=== PATIENT | male | born 1945 | race Caucasian/White ===

== ENCOUNTER 2017-12-21 23:10 | Observation (INO) | END 2017-12-23 18:35 | disposition home or self-care (01) ==

== ENCOUNTER 2022-01-26 10:35 | Emergency (ER) | payer MEDICARE, OTHER ==
[~2022-01-26] VITALS: Ht 177.8 cm; Wt 113.4 kg
[~2022-01-26 10:35] MED LIST: AMLO5 PO; ASPI81CH PO; ATOR80 PO; CLOP75 PO; EZET10-20 PO; LOSARTAN-HCTZ1 EAC1 PO; METF500 PO; Metformin HCl1000 MG PO
[2022-01-26] MEDS ORDERED: CEPH500 PO ×2 (14:56→15:01)
[2022-01-26] MEDS ORDERED: BACITO TOP ×2 (14:56→15:01)
== END 2022-01-26 15:00 | disposition home or self-care (01) ==
LOC: ER 10:35
DX: S01.311A Laceration without foreign body of right ear, initial encounter (principal); S09.90XA Unspecified injury of head, initial encounter; I10 Essential (primary) hypertension; I25.10 Atherosclerotic heart disease of native coronary artery without angina pectoris; E11.9 Type 2 diabetes mellitus without complications; E78.5 Hyperlipidemia, unspecified; Z95.5 Presence of coronary angioplasty implant and graft; Z79.82 Long term (current) use of aspirin; Z79.899 Other long term (current) drug therapy; Z79.84 Long term (current) use of oral hypoglycemic drugs; W22.8XXA Striking against or struck by other objects, initial encounter
CPT/HCPCS: 90714; A9270